=== PATIENT | male | born 1930 | race Caucasian/White ===

== ENCOUNTER 2016-11-27 11:42 | Observation (INO) | payer BC ==
[~2016-11-27] VITALS: Ht 175.3 cm; Wt 78.2 kg
[2016-11-27] MEDS ORDERED: LIDOCAINE/EPINEPH/TETRACAINE 1 EA SYR EXT STA (12:21)
--- NOTE | 2016-11-27 12:39 | EMERGENCY ROOM VISIT NOTE ---
History First contact with patient: 12:01 Chief Complaint: FALL Stated Complaint: HEAD WOUND History of Present Illness The patient is a 86 year old male who presents to the Emergency Department by private vehicle for evaluation after sustaining a fall this morning. He reports that he was ambulated through his house when he tripped over the legs of an elliptical machine. He denies any prefall headaches, dizziness, light headedness, chest pain, or palpitations. He reports striking his head on a metal table on the way down. He did not lose consciousness. He was able to gather himself from the ground. His put corn starch on the wound to help stop the bleeding as he does take Coumadin secondary to atrial fibrillation. He was seen at a walk-in clinic and directed to the emergency Department for further evaluation and management. The patient complains of mild discomfort to the site of laceration. In addition, the patient complains of pain with range of motion of the cervical spine. The patient denies any numbness or weakness into the distal extremities. He denies any total headache, blurred vision, double vision, numbness/weakness takes remedies, nausea, or vomiting. He denies any other pain throughout. He rates his current discomfort as 0/10. He is uncertain of his last INR. Patient is uncertain of his tetanus status. Review of Systems A complete 10-point Review of Systems was discussed with the patient, with pertinent positives and negatives listed in the History of Present Illness. All remaining Review of Systems questions can be considered negative unless otherwise specified. Social History Smoking Status: Never Smoker Smokeless Tobacco Use: No Drug Use: none Marital Status: Housing Status: lives with significant other Current/Historical Medications Scheduled Aspirin (Aspirin Chewable), 81 MG PO HS Atorvastatin (Lipitor), 40 MG PO HS B-Complex Vitamins (Vitamin B Complex), 1 TAB PO QAM Carvedilol (Coreg), 6.25 MG PO BID Fish Oil (Rockwood-3), 1 CAP PO DAILY Insulin Isophan/Regular (Novolin 70/30), 10 UNIT SC BID Lisinopril (Lisinopril), 2.5 MG PO QAM Multiple Vitamins W/ Minerals (Centrum Silver Adult 50+), 1 TAB PO QAM Warfarin Sodium (Coumadin), 5 MG PO QPM Allergies Coded Allergies: No Known Allergies (Unverified , 11/27/16) Physical Exam Vital Signs Date Time Temp Pulse Resp B/P Pulse Ox O2 Delivery O2 Flow Rate FiO2 11/27/16 14:35 60 148/71 99 Room Air 11/27/16 14:30 99 Room Air 11/27/16 13:09 68 18 118/62 93 Room Air 11/27/16 11:53 36.4 74 20 146/73 98 Room Air Pain Rating (0-10): 0 Physical Exam VITAL SIGNS - Vital signs and nursing notes were reviewed. GENERAL - 86-year-old male appearing his stated age. Communicates well with provider and answers questions appropriately. SKIN - 3.0 cm appreciated to the forehead. Edges gape apart with traction. No deep structures appreciated. No active bleeding noted. HEAD - Normocephalic. No Craig's Sign or Raccoon's Eyes. No depressed skull fractures palpable. EYES - PERRL with EOMI bilaterally. Without subconjunctival hemorrhage. Palpebral conjunctiva pink and moist with no injection. EARS - No deformities of external structures noted on gross examination bilaterally. No hemotympanum present. No tympanic perforation noted. Handle of malleus, umbo, cone of light, pars tensa/flaccid all easily visualized. NOSE - Midline and without cyanosis. No epistaxis or clear watery discharge noted. Septum midline without deviation. No septal hematoma noted. No overlying ecchymosis noted. MOUTH/OROPHARYNX - Without perioral cyanosis. Tongue midline with equal elevation of palate bilaterally. No blood noted in the oropharynx. No tonsillar hypertrophy, erythema, or exudates noted. No dental fractures noted. NECK - FROM assessed. No nuchal rigidity. No tenderness to palpation over the cervical spinous processes. Mild cervical paraspinal muscle tenderness noted. LUNGS - Chest wall symmetric without accessory muscle use, intercostals retractions, or central cyanosis. Normal vesicular breath sounds CTA B/L. No wheezes, rales, or rhonchi appreciated. CARDIAC - RRR with S1/S2. No murmur, rubs, or gallops appreciated. EXTREMITIES - No gross deformities noted of the extremities. +3/5 radial and dorsalis pedis pulses palpated throughout. FROM with no tremors, fasciculations , or clonus noted on PROM throughout. +5/5 strength noted in UE/LE bilaterally. NEUROLOGIC - Cranial nerves II through XII grossly intact. Sensory intact to light touch throughout. Negative Pronator Drift. PSYCH - A&Ox3 and cooperates fully with examiner. Pt is very pleasant and interacts well with examiner. Medical Decision & Procedures ER Provider Diagnostic Interpretation: Radiological imaging and reports were reviewed by myself. Radiologist's Interpretation as follows: CERVICAL SPINE CT CT DOSE: HISTORY: Trauma. Pain. neck pain s/p fall forward TECHNIQUE: Multiaxial CT images of the cervical spine were performed and reformatted in the sagittal and coronal plane without the use of contrast. COMPARISON: None. FINDINGS: No fractures. No subluxation. Prevertebral soft tissues and the C1-C2 interval are intact. No pneumothorax. Considerable degenerative changes throughout. IMPRESSION: Degenerative change. No acute bony abnormality CT SCAN OF THE BRAIN WITHOUT IV CONTRAST CLINICAL HISTORY: Head injury. COMPARISON STUDY: No priors. TECHNIQUE: Unenhanced axial CT scan of the brain is performed from the vertex to the skull base. CT DOSE: 1142.25 mGy.cm FINDINGS: Brain parenchyma: There are age-related involutional changes noting mild subcortical and periventricular microangiopathic change. There is no hemorrhage, mass effect, or evidence of acute territorial ischemia by CT criteria. Vanessa-white matter is preserved. No extra-axial fluid collection is seen. Ventricles, sulci, cisterns: Prominent secondary to involutional change. Intracranial vasculature: There is atherosclerotic calcification of the cavernous carotid and vertebral arteries. Calvarium: The skeletal structures are osteopenic. There is a nondepressed calvarial fracture through the frontal bone the midline. This is best seen on axial image #20. Soft tissues: There is a small frontal scalp contusion/laceration. Sinuses and mastoids: The visualized paranasal sinuses are clear. The mastoid air cells are well pneumatized. Orbits: The bony orbits are grossly intact. There are bilateral ocular lens implants. IMPRESSION: 1. There is no hemorrhage, mass effect, or evidence of acute territorial ischemia by CT criteria. 2. There is a frontal scalp injury with a nondepressed fracture of the midline frontal bone. Laboratory Results 11/27/16 12:25 Red Blood Count 4.37, Mean Corpuscular Volume 93.4, Mean Corpuscular Hemoglobin 31.6, Mean Corpuscular Hemoglobin Concent 33.8, Mean Platelet Volume 10.7, Neutrophils (%) (Auto) 57.2, Lymphocytes (%) (Auto) 24.7, Monocytes (%) (Auto) 13.7, Eosinophils (%) (Auto) 3.9, Basophils (%) (Auto) 0.3, Neutrophils # (Auto ) 3.49, Lymphocytes # (Auto) 1.51, Monocytes # (Auto) 0.84, Eosinophils # (Auto ) 0.24, Basophils # (Auto) 0.02 11/27/16 12:25 Test 11/27/16 12:25 White Blood Count 6.11 K/uL (4.8-10.8) Red Blood Count 4.37 M/uL (4.7-6.1) Hemoglobin 13.8 g/dL (14.0-18.0) Hematocrit 40.8 % (42-52) Mean Corpuscular Volume 93.4 fL (80-100) Mean Corpuscular Hemoglobin 31.6 pg (25-34) Mean Corpuscular Hemoglobin Concent 33.8 g/dl (32-36) Platelet Count 185 K/uL (130-400) Mean Platelet Volume 10.7 fL (7.4-10.4) Neutrophils (%) (Auto) 57.2 % Lymphocytes (%) (Auto) 24.7 % Monocytes (%) (Auto) 13.7 % Eosinophils (%) (Auto) 3.9 % Basophils (%) (Auto) 0.3 % Neutrophils # (Auto) 3.49 K/uL (1.4-6.5) Lymphocytes # (Auto) 1.51 K/uL (1.2-3.4) Monocytes # (Auto) 0.84 K/uL (0.11-0.59) Eosinophils # (Auto) 0.24 K/uL (0-0.5) Basophils # (Auto) 0.02 K/uL (0-0.2) RDW Standard Deviation 48.4 fL (36.4-46.3) RDW Coefficient of Variation 14.0 % (11.5-14.5) Immature Granulocyte % (Auto) 0.2 % Immature Granulocyte # (Auto) 0.01 K/uL (0.00-0.02) Prothrombin Time 23.4 SECONDS (9.0-12.0) Prothromb Time International Ratio 2.1 (0.9-1.1) Activated Partial Thromboplast Time 32.2 SECONDS (21.0-31.0) Partial Thromboplastin Ratio 1.2 Anion Gap 7.0 mmol/L (3-11) Est Creatinine Clear Calc Drug Dose 43.7 ml/min Estimated GFR () 85.3 Estimated GFR (Non- 73.6 BUN/Creatinine Ratio 27.6 (10-20) Calcium Level 9.0 mg/dl (8.5-10.1) Medications Administered Medications (Trade) Dose Ordered Sig/Norah Route Start Time Stop Time Status Last Admin Dose Admin Tetracaine/ Epinephrine/ Lidocaine (L.e.t. Gel 4%/ 1:100/0.5%) 1 ea NOW STAT EXT 11/27/16 12:21 11/27/16 12:23 DC 11/27/16 12:31 1 EA Procedure Costs and benefits of performing primary wound closure versus no repair were discussed with the patient who verbalizes understanding. Verbal consent was obtained prior to performing the procedure. LET gel was applied to the area and allowed to set for greater than 45 minutes. The wound was cleansed and prepped in the typical sterile fashion utilizing normal saline and Betadine. The wound was sterilely draped. Once proper anesthetization was established, the wound was further examined and demonstrated a full-thickness laceration measuring a total of 3 cm. The wound was copiously irrigated with normal saline and Betadine. The wound was closed using 2 simple interrupted 6-0 Vicryl sutures and 13 simple, 6-0 nylon sutures with the wound edges being well approximated. Patient tolerated the procedure well. No complications were met. The wound was cleansed and dressed with a Bacitracin dressing. ED Course Patient was seen and evaluated by myself. Labs were drawn, saline lock in place. Patient declines anything for pain at this time. CT the head and cervical spine were obtained after the patient was placed in a collar. Laboratory results demonstrate no acute leukocytosis, significant anemia, or bandemia. The patient has no significant electrolyte abnormalities. His INR is therapeutic at 2.1. CT the several spine is unremarkable. CT of the head concerning for frontal bone fracture which is nondepressed. I did discuss this with my attending physician. I was able to speak with Dr. Jay Hu at [facility]. The neurosurgeon did not feel that any intervention was necessary at this point. He agrees with 24 hour observation for mental status checks and any decline in symptoms otherwise. He will follow- up with the patient in clinic from today's visit. He does request CT imaging studies and a hard copy form. He does not feel that antibiotic coverage is necessary at this point. Laboratory results and imaging studies were reviewed with the patient and family who acknowledges understanding. Patient agrees to 24 hour observation. Case was reviewed with [facility] hospitalist who agrees to admit the patient. Patient admitted in stable condition. SUTURE CARE: You have received 13 sutures on your forehead. These sutures are NOT dissolvable and WILL need to be removed by a health care provider in 7 days. You can return to the Emergency Department or contact your Primary Care Provider to have the sutures removed. Proper wound care is essential for adequate wound healing and infection prevention. You can shower and clean the wound with soap and water. Do not scour over the wound, pat dry with a towel. Do not submerse the wound (i.e. bathe or dish wash) until the sutures have been removed. You can use an antibiotic ointment with a dressing over the wound for the next 3-4 days. After this time you may leave the wound dry and open to the air. If crust develops over the wound you can use a Q-tip to apply a 1:1 peroxide:water solution to clean the wound. Look for signs of infection of the wound including: increased pain, swelling, foul discharge, streaking, or increased temperature. If any of these are noticed you should return to the Emergency Department for further assessment and treatment. As with any laceration you may have received nerve damage to the surrounding tissues. This damage may or may not be permanent. You should keep the area covered with sunscreen for the first 6 months to 1 year when at risk for exposure to help minimize scarring. You can also use scar reducing creams or Vitamin E oil to help minimize scarring. For pain control, you can use the following tuep-wet-ihyklrn medicines (if >12 yo): - Regular strength (325mg/tab) Tylenol (acetaminophen) 2 tabs every 4-6 hours as needed. Do not exceed 12 tablets in a 24 hour period. Avoid taking more than 4 grams (4000 mg) of Tylenol per day. This includes any other sources of acetaminophen you may take on a regular basis. - Regular strength (200 mg/tab) Advil (ibuprofen) 1-2 tabs every 4-6 hours as needed. Do not exceed a dose of 3200 mg per day. Return to the emergency department if your symptoms worsen despite treatment course outlined above. Medical Decision Given the patient's presentation and exam findings, I did elect to perform the above-mentioned workup. The patient sustained a mechanical fall today. There is no loss of consciousness. He has complained of neck pain. Because of this, a CT of the cervical spine as well as head were obtained. CT the head was concerning for frontal bone fracture which was nondepressed. Regardless, the patient is on Coumadin and lives at home with his ailing . After conversation with neurosurgeon at [place], it was felt best that the patient be observed for 24 hours and then follow closely in the outpatient setting. The patient was in agreement with disposition plan. The patient was admitted in stable condition. In the evaluation and treatment of this patient, the following differential diagnoses were considered: Concussion, Contrecoup Injury, Brain Tumor, Depression, Encephalitis, Hypothyroidism, Meningitis, CVA, TIA, Migraine, Cluster Headache, Intracranial Abnormality, Intracranial Hemorrhage, Subdural Hematoma, Subarachnoid Hemorrhage, Hydrocephalus. Impression Primary Impression: Frontal skull fracture Additional Impressions: Fall Facial laceration Departure Information Dispostion Admitted as an inpatient Condition GOOD Referrals RV. Mills MD (PCP) Patient Instructions [facility] Problem Qualifiers Primary Impression: Frontal skull fracture Encounter type: initial encounter Fracture type: open Qualified Codes: S02.0XXB - Fracture of vault of skull, initial encounter for open fracture Additional Impressions: Fall Encounter type: initial encounter Qualified Codes: W19.XXXA - Unspecified fall, initial encounter Facial laceration Encounter type: initial encounter Qualified Codes: S01.81XA - Laceration without foreign body of other part of head, initial encounter
[2016-11-27 12:40] LABS: BASO % 0.3 %; BASO ABS # 0.02 K/uL (0-0.2); COMPLETE YES; EOS % 3.9 %; HEMATOCRIT 40.8 % (42-52); IG% 0.2 %; LYMPH % 24.7 %; LYMPH ABS # 1.51 K/uL (1.2-3.4); MEAN CELL VOLUME 93.4 fL (80-100); MEAN CORPUSCULAR HEMOGLOBIN 31.6 pg (25-34); MEAN CORPUSCULAR HGB CONC 33.8 g/dl (32-36); MEAN PLATELET VOLUME 10.7 fL (7.4-10.4); MONO % 13.7 %; NEUT % 57.2 %; PLATELET COUNT 185 K/uL (130-400); RED BLOOD COUNT 4.37 M/uL (4.7-6.1); WHITE BLOOD COUNT 6.11 K/uL (4.8-10.8)
[2016-11-27] MEDS ORDERED: ATOR-24 PO (12:46)
[2016-11-27] MEDS ORDERED: MULT-845 PO (12:46)
[2016-11-27] MEDS ORDERED: B-COTAB18 PO (12:46)
[2016-11-27] MEDS ORDERED: INSU70IN2 SC (12:46)
[2016-11-27] MEDS ORDERED: LSN25 PO (12:46)
[2016-11-27] MEDS ORDERED: ASPCH81X PO (12:46)
[2016-11-27] MEDS ORDERED: WARF5TAB90 PO (12:46)
[2016-11-27] MEDS ORDERED: OMEG10007 PO (12:46)
[2016-11-27] MEDS ORDERED: CARV6.252 PO (12:46)
[2016-11-27 12:49] LABS: INR 2.1 (0.9-1.1); PARTIAL THROMBOPLASTIN RATIO 1.2; PROTHROMBIN TIME (PATIENT) 23.4 SECONDS (9.0-12.0)
--- NOTE | 2016-11-27 12:55 | DIAGNOSTIC IMAGING REPORT ---
CERVICAL SPINE CT CT DOSE: HISTORY: Trauma. Pain. neck pain s/p fall forward TECHNIQUE: Multiaxial CT images of the cervical spine were performed and reformatted in the sagittal and coronal plane without the use of contrast. COMPARISON: None. FINDINGS: No fractures. No subluxation. Prevertebral soft tissues and the C1-C2 interval are intact. No pneumothorax. Considerable degenerative changes throughout. IMPRESSION: Degenerative change. No acute bony abnormality Electronically signed by: Ander Willis M.D. 11/27/2016 12:53 PM Dictated Date/Time: 11/27/2016 12:52 PM
[2016-11-27 12:57] LABS: BUN/CREATININE RATIO 27.6 (10-20); CREATININE 0.94 mg/dl (0.60-1.40); POTASSIUM 4.2 mmol/L (3.5-5.1)
--- NOTE | 2016-11-27 12:57 | DIAGNOSTIC IMAGING REPORT ---
CT SCAN OF THE BRAIN WITHOUT IV CONTRAST CLINICAL HISTORY: Head injury. COMPARISON STUDY: No priors. TECHNIQUE: Unenhanced axial CT scan of the brain is performed from the vertex to the skull base. CT DOSE: 1142.25 mGy.cm FINDINGS: Brain parenchyma: There are age-related involutional changes noting mild subcortical and periventricular microangiopathic change. There is no hemorrhage, mass effect, or evidence of acute territorial ischemia by CT criteria. Vanessa-white matter is preserved. No extra-axial fluid collection is seen. Ventricles, sulci, cisterns: Prominent secondary to involutional change. Intracranial vasculature: There is atherosclerotic calcification of the cavernous carotid and vertebral arteries. Calvarium: The skeletal structures are osteopenic. There is a nondepressed calvarial fracture through the frontal bone the midline. This is best seen on axial image #20. Soft tissues: There is a small frontal scalp contusion/laceration. Sinuses and mastoids: The visualized paranasal sinuses are clear. The mastoid air cells are well pneumatized. Orbits: The bony orbits are grossly intact. There are bilateral ocular lens implants. IMPRESSION: 1. There is no hemorrhage, mass effect, or evidence of acute territorial ischemia by CT criteria. 2. There is a frontal scalp injury with a nondepressed fracture of the midline frontal bone. Electronically signed by: Godfrey Hennessy M.D. 11/27/2016 12:55 PM Dictated Date/Time: 11/27/2016 12:51 PM
[2016-11-27 14:30] VITALS: O2SAT 99; Ht 175.3 cm; Wt 78.2 kg
[2016-11-27] MEDS ORDERED: ACETAMINOPHEN 325 MG TAB PO PRN (14:30)
[2016-11-27] MEDS ORDERED: ONDANSETRON INJ 2 MG/ML 2 ML VIAL IV PRN (14:30)
[2016-11-27] MEDS ORDERED: NITROGLYCERIN 0.4 MG SL PER TAB CHARGE SL PRN (14:30)
[2016-11-27] MEDS ORDERED: MAGNESIUM HYDROXIDE SUSP 30 ML UDC PO PRN (14:30)
[2016-11-27] MEDS ORDERED: MoRPHine SULFATE 2 MG/ML CARP IV PRN (14:30)
[2016-11-27] MEDS ORDERED: POLYETHYLENE (MIRALAX) 17 GM PACK PO PRN (14:30)
[2016-11-27] MEDS ORDERED: ALUMINUM/MAGNESIUM/SIMETH (MAALOX MAX) 30 ML UDC PO PRN (14:30)
--- NOTE | 2016-11-27 14:58 | History and Physical ---
History & Physical Date & Time of Service: Nov 27, 2016 at 14:50 Chief Complaint: Head Wound Primary Care Physician: RV. 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 Patient was in his living room [facility], tripped over its legs, fell and hit his forehead on edge of metal sewing machine table. He denies any preceding presyncope, syncope, loss of balance , however normally use cane, using brace on left foot for tendonitis, at the time , had no cane or brace with him. Following significant bleeding, applied pressure to forehead with cloth, and applied corn starch to wound. after fall: + pain at laceration, denies confusion, dizziness, headache,no blurry vision, ringing in ears, no n/v light sensitivity, fatigue. He has had previous fall 1 mo ago most recently for similar circumstances. Currently he is feeling well, 2/10 pain and s/p suturing of forehead laceration. In ED Initial CT shows no evidence of hemorrhage Past Medical/Surgical History Aortic Stenosis w/CHF pacemaker DM II HLD RBBB Paroxysmal Atrial fibrillation Third Degree AV Block Anemic(chronic) Social History Smoking Status: Never Smoker Smokeless Tobacco Use: No Drug Use: none Marital Status: Housing status: lives with family Occupational Status: retired Allergies Coded Allergies: No Known Allergies (Unverified , 11/27/16) Home Medications Scheduled Aspirin (Aspirin Chewable), 81 MG PO HS Atorvastatin (Lipitor), 40 MG PO HS B-Complex Vitamins (Vitamin B Complex), 1 TAB PO QAM Carvedilol (Coreg), 6.25 MG PO BID Fish Oil ([place]-3), 1 CAP PO DAILY Insulin Isophan/Regular (Novolin 70/30), 10 UNIT SC BID Lisinopril (Lisinopril), 2.5 MG PO QAM Multiple Vitamins W/ Minerals (Centrum Silver Adult 50+), 1 TAB PO QAM Warfarin Sodium (Coumadin), 5 MG PO QPM Review of Systems Constitutional: No chills, No fatigue, No fever, No weakness Eyes: No diplopia, No eye pain, No worsening of vision Respiratory: No cough, No shortness of breath, No wheezing Cardiovascular: No chest pain, No edema, No palpitations Abdomen: No nausea, No pain, No vomiting Genitourinary - Male: No dysuria, No hematuria, No urinary frequency Neurologic: + problem reported, No balance problems, No memory loss, No numbness/tingling, No paralysis, No vertigo, No weakness Hematologic / Lymphatic: + problem reported (on Coumadin) Integumentary: + bleeding (from forehead laceration) Physical Exam Vital Signs Date Time Temp Pulse Resp B/P Pulse Ox O2 Delivery O2 Flow Rate FiO2 11/27/16 13:09 68 18 118/62 93 Room Air 11/27/16 11:53 36.4 74 20 146/73 98 Room Air Head: + pertinent finding (3 cm forehead laceration, s/p suturing) Eyes: normal inspection, PERRL, EOMI Neck: supple, no JVD, no carotid bruits Respiratory/Chest: chest non-tender, lungs clear, normal breath sounds, no respiratory distress, no accessory muscle use Cardiovascular: regular rate, rhythm, no edema, no gallop, no JVD, normal peripheral pulses Abdomen/GI: normal bowel sounds, non tender, soft, no organomegaly Extremities/Musculoskelatal: normal inspection, no calf tenderness, no pedal edema Neurologic/Psych: private client advisor II-XII nml as tested, no motor/sensory deficits, alert, normal mood/affect, normal reflexes, oriented x 3 Diagnostics Laboratory Results Results Past 24 Hours Test 11/27/16 12:25 Range/Units White Blood Count 6.11 4.8-10.8 K/uL Red Blood Count 4.37 4.7-6.1 M/uL Hemoglobin 13.8 14.0-18.0 g/dL Hematocrit 40.8 42-52 % Mean Corpuscular Volume 93.4 80-100 fL Mean Corpuscular Hemoglobin 31.6 25-34 pg Mean Corpuscular Hemoglobin Concent 33.8 32-36 g/dl Platelet Count 185 130-400 K/uL Mean Platelet Volume 10.7 7.4-10.4 fL Neutrophils (%) (Auto) 57.2 % Lymphocytes (%) (Auto) 24.7 % Monocytes (%) (Auto) 13.7 % Eosinophils (%) (Auto) 3.9 % Basophils (%) (Auto) 0.3 % Neutrophils # (Auto) 3.49 1.4-6.5 K/uL Lymphocytes # (Auto) 1.51 1.2-3.4 K/uL Monocytes # (Auto) 0.84 0.11-0.59 K/uL Eosinophils # (Auto) 0.24 0-0.5 K/uL Basophils # (Auto) 0.02 0-0.2 K/uL RDW Standard Deviation 48.4 36.4-46.3 fL RDW Coefficient of Variation 14.0 11.5-14.5 % Immature Granulocyte % (Auto) 0.2 % Immature Granulocyte # (Auto) 0.01 0.00-0.02 K/uL Prothrombin Time 23.4 9.0-12.0 SECONDS Prothromb Time International Ratio 2.1 0.9-1.1 Activated Partial Thromboplast Time 32.2 21.0-31.0 SECONDS Partial Thromboplastin Ratio 1.2 Sodium Level 142 136-145 mmol/L Potassium Level 4.2 3.5-5.1 mmol/L Chloride Level 107 98-107 mmol/L Carbon Dioxide Level 28 21-32 mmol/L Anion Gap 7.0 3-11 mmol/L Blood Urea Nitrogen 26 7-18 mg/dl Creatinine 0.94 0.60-1.40 mg/dl Est Creatinine Clear Calc Drug Dose 43.7 ml/min Estimated GFR () 85.3 Estimated GFR (Non- 73.6 BUN/Creatinine Ratio 27.6 10-20 Random Glucose 111 70-99 mg/dl Calcium Level 9.0 8.5-10.1 mg/dl Diagnostic Radiology CERVICAL SPINE CT CT DOSE: HISTORY: Trauma. Pain. neck pain s/p fall forward TECHNIQUE: Multiaxial CT images of the cervical spine were performed and reformatted in the sagittal and coronal plane without the use of contrast. COMPARISON: None. FINDINGS: No fractures. No subluxation. Prevertebral soft tissues and the C1-C2 interval are intact. No pneumothorax. Considerable degenerative changes throughout. IMPRESSION: Degenerative change. No acute bony abnormality CT SCAN OF THE BRAIN WITHOUT IV CONTRAST CLINICAL HISTORY: Head injury. COMPARISON STUDY: No priors. TECHNIQUE: Unenhanced axial CT scan of the brain is performed from the vertex to the skull base. CT DOSE: 1142.25 mGy.cm FINDINGS: Brain parenchyma: There are age-related involutional changes noting mild subcortical and periventricular microangiopathic change. There is no hemorrhage, mass effect, or evidence of acute territorial ischemia by CT criteria. Vanessa-white matter is preserved. No extra-axial fluid collection is seen. Ventricles, sulci, cisterns: Prominent secondary to involutional change. Intracranial vasculature: There is atherosclerotic calcification of the cavernous carotid and vertebral arteries. Calvarium: The skeletal structures are osteopenic. There is a nondepressed calvarial fracture through the frontal bone the midline. This is best seen on axial image #20. Soft tissues: There is a small frontal scalp contusion/laceration. Sinuses and mastoids: The visualized paranasal sinuses are clear. The mastoid air cells are well pneumatized. Orbits: The bony orbits are grossly intact. There are bilateral ocular lens implants. IMPRESSION: 1. There is no hemorrhage, mass effect, or evidence of acute territorial ischemia by CT criteria. 2. There is a frontal scalp injury with a nondepressed fracture of the midline frontal bone. 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 There is no hemorrhage, mass effect, or evidence of acute territorial ischemia by CT criteria. 2. There is a frontal scalp injury with a nondepressed fracture of the midline frontal bone. -Neuro checks q4H -Hold Coumadin -repeat CT in AM Aortic Stenosis: - s/p TAVR -stable, asx DM II -Continue home insulin regimen HLD -statin held RBBB, Third Degree AV Block -s/p dual chamber pacemaker -stable - Monitor on Telemetry Paroxysmal Atrial fibrillation - rate controlled - Coumadin held -INR 2.1 - Consider rversal if evidence of bleed Anemic(chronic) H/H Stable 13.8/40.8 baseline range 9-14 F/u CBC DVT Prophylaxis Coumadin held SCD's Resident Physician Supervision Note: Pt examined independently. I discussed the case with the resident and agree with the findings and plan as documented in the note. Any exceptions or clarifications are listed here 86 y/o M w/multiple medical problems on Coumadin for AF Suffered a mechanical fall and resultant head lac and frontal skull fracture No LOC reported and no ICH on CT Case was discussed with Neurosurg at [facility] - stated OK to obs overnight and monitor OE AAO x 3 S1,2 + systolic murmur NT, ND No C/C/E No defecitds on full neuro exam P: Neurochecks Q4 Hold Coumadin and ASA Repeat CT AM Documented By: Justino Patrick Level of Care Telemetry Resuscitation Status FULL RESUSCITATION VTE Prophylaxis VTE Risk Assessment Done? Y/N: Yes Risk Level: Low Social Service Consult None Apply Resident Tracking Resident Involvement: Resident Care Provided Care Provided: Adult Hospital Medicine
[2016-11-27] MEDS ORDERED: IV FLUIDS COMPLETED PRN (15:15)
[2016-11-27 15:46] VITALS: BP 129/73; PULSE 60; TEMP 36.5; O2SAT 96
[2016-11-27 16:00] VITALS: O2SAT 96
[2016-11-27] MEDS ORDERED: DEXTROSE 50% 50 ML SYR IV PRN (16:00)
[2016-11-27] MEDS ORDERED: GLUCAGON FOR INJ 1 MG VIAL SQ PRN (16:00)
[2016-11-27] MEDS ORDERED: GLUCOSE 40% GEL 15 GM TUBE PO PRN (16:00)
[2016-11-27] MEDS ORDERED: GLUCOSE 10 TABS/TUBE PO PRN (16:00)
[2016-11-27] MEDS: NITROGLYCERIN OINT 2% 1GM PACKET EXT SCH ×2 (16:59→22:02)
[2016-11-27] MEDS: INSULIN HUMAN 70% NPH/30% REGULAR SC SCH (17:01)
[2016-11-27 19:35] VITALS: BP 100/56; PULSE 60; TEMP 36.7; O2SAT 95
[2016-11-27] MEDS: CARVEDILOL 6.25 MG TAB PO SCH (20:55)
[2016-11-27 22:00] VITALS: O2SAT 95
[2016-11-27 23:35] VITALS: BP 115/63; PULSE 60; TEMP 36.6; O2SAT 95
[2016-11-28 03:19] VITALS: BP 92/49; PULSE 60; TEMP 36.6; O2SAT 94
[2016-11-28] MEDS: NITROGLYCERIN OINT 2% 1GM PACKET EXT SCH ×2 (04:00→10:00)
[2016-11-28 07:55] VITALS: BP 111/52; PULSE 61; TEMP 36.4; O2SAT 95
[2016-11-28 08:00] VITALS: O2SAT 95
[2016-11-28] MEDS: CARVEDILOL 6.25 MG TAB PO SCH (08:22)
[2016-11-28] MEDS: INSULIN HUMAN 70% NPH/30% REGULAR SC SCH (08:25)
--- NOTE | 2016-11-28 08:46 | Family Medicine Progress Note ---
Progress Note Date of Service Nov 28, 2016. Subjective Pt evaluation today including: conversation w/ patient, physical exam, chart review, lab review, review of studies, review of inpatient medication list Pain: 2/10 pain at laceration Medications Current Inpatient Medications Medications (Trade) Dose Ordered Sig/Norah Route Start Time Stop Time Status Last Admin Dose Admin Acetaminophen (Tylenol Tab) 650 mg Q4H PRN PO 11/27/16 14:30 12/27/16 14:29 11/28/16 08:32 650 MG Al Hydrox/Mg Hydrox/Simethicone (Maalox Max Susp) 15 ml Q4H PRN PO 11/27/16 14:30 12/27/16 14:29 Magnesium Hydroxide (Milk Of Magnesia Susp) 30 ml Q12H PRN PO 11/27/16 14:30 12/27/16 14:29 Ondansetron HCl (Zofran Inj) 4 mg Q6H PRN IV 11/27/16 14:30 12/27/16 14:29 Nitroglycerin (Nitrostat Tab) 0.4 mg UD PRN SL 11/27/16 14:30 12/27/16 14:29 Nitroglycerin (Nitroglycerin 2% Oint) 1 inch Q6H EXT 11/27/16 16:00 12/27/16 15:59 11/27/16 22:02 1 INCH Morphine Sulfate (MoRPHine SULFATE INJ) 2 mg Q30M PRN IV 11/27/16 14:30 12/11/16 14:29 Polyethylene (Miralax Powder Packet) 17 gm DAILY PRN PO 11/27/16 14:30 12/27/16 14:29 Miscellaneous (Iv Fluids Completed) 1 ea PRN PRN N/A 11/27/16 15:15 11/27/17 15:14 Carvedilol (Coreg Tab) 6.25 mg BID PO 11/27/16 21:00 12/27/16 20:59 11/28/16 08:22 6.25 MG Insulin Human Isoph/Insulin Regular (novoLIN 70/30 REGULAR) 10 units BIDM SC 11/27/16 16:45 12/27/16 16:44 11/28/16 08:25 10 UNITS Lisinopril (Zestril Tab) 2.5 mg QAM PO 11/28/16 09:00 12/28/16 08:59 11/28/16 08:23 2.5 MG Glucose (Glucose 40% Gel) 15-30 GRAMS 15 GRAMS... UD PRN PO 11/27/16 16:00 12/27/16 15:59 Glucose (Glucose Chew Tab) 4-8 Tablets 4 Tabl... UD PRN PO 11/27/16 16:00 12/27/16 15:59 Dextrose (Dextrose 50% 50ML Syringe) 25-50ML OF 50% DW IV FOR... UD PRN IV 11/27/16 16:00 12/27/16 15:59 Glucagon (Glucagon Inj) 1 mg UD PRN SQ 11/27/16 16:00 12/27/16 15:59 Objective Vital Signs Date Time Temp Pulse Resp B/P Pulse Ox O2 Delivery O2 Flow Rate FiO2 11/28/16 07:55 36.4 61 18 111/52 95 Room Air 11/28/16 04:00 Room Air 11/28/16 03:19 36.6 60 17 92/49 94 Room Air 11/28/16 00:00 Room Air 11/27/16 23:35 36.6 60 16 115/63 95 Room Air 11/27/16 22:00 95 Room Air 11/27/16 19:35 36.7 60 24 100/56 95 Room Air 11/27/16 16:00 96 Room Air 11/27/16 15:46 36.5 60 22 129/73 96 11/27/16 14:35 60 148/71 99 Room Air 11/27/16 14:30 99 Room Air 11/27/16 13:09 68 18 118/62 93 Room Air 11/27/16 11:53 36.4 74 20 146/73 98 Room Air Physical Exam General Appearance: WD/WN, no apparent distress, + pertinent finding (3 cm facial lacteration, sutured, no drainage) Eyes: normal inspection, PERRL, EOMI Neck: supple, no adenopathy, no carotid bruits, trachea midline Respiratory/Chest: chest non-tender, normal breath sounds, no respiratory distress, no accessory muscle use Cardiovascular: regular rate, rhythm, no edema, no murmur Abdomen: normal bowel sounds, non tender, soft Extremities: normal range of motion, non-tender, normal inspection Neurologic/Psychiatric: cut off man II-XII nml as tested, no motor/sensory deficits, alert, normal mood/affect, oriented x 3 Skin: normal color, warm/dry, no rash Resident Tracking Resident Involvement: Resident Care Provided Care Provided: Adult [facility] Medicine
[2016-11-28] MEDS ORDERED: LISINOPRIL 2.5 MG TAB PO SCH (09:00)
--- NOTE | 2016-11-28 09:35 | DIAGNOSTIC IMAGING REPORT ---
CT HEAD WITHOUT CONTRAST (CT) CLINICAL HISTORY: Head trauma. Nondisplaced skull fracture. COMPARISON STUDY: 11/27/2016 TECHNIQUE: Axial CT of the brain is performed from the vertex to the skull base. IV contrast was not administered for this examination. CT DOSE: 614.27 mGy.cm FINDINGS: No intra or extra-axial mass lesions are visualized. There is no CT evidence of acute cortical infarction. There is no evidence of midline shift. There is no acute hemorrhage. There are patchy white matter hypodensities likely on a small vessel basis. There is no evidence of pathologic ventricular dilatation. There is no evidence of acute sinusitis. There is minor frontal scalp edema. A linear lucency is visualized within the frontal bone in the midline. This was previously described as a nondisplaced fracture. While I cannot exclude a fracture, I favor this representing a sutural remnant. IMPRESSION: No acute intracranial findings Electronically signed by: Brannon Gonzalez M.D. 11/28/2016 9:34 AM Dictated Date/Time: 11/28/2016 9:27 AM
[2016-11-28 10:18] LABS: HEMATOCRIT 39.5 % (42-52); MEAN CELL VOLUME 94.3 fL (80-100); MEAN CORPUSCULAR HEMOGLOBIN 32.7 pg (25-34); MEAN CORPUSCULAR HGB CONC 34.7 g/dl (32-36); PLATELET COUNT 173 K/uL (130-400); RED BLOOD COUNT 4.19 M/uL (4.7-6.1)
[2016-11-28 10:43] LABS: BUN/CREATININE RATIO 27.6 (10-20); CALCIUM 8.5 mg/dl (8.5-10.1); CREATININE 0.95 mg/dl (0.60-1.40)
--- NOTE | 2016-11-28 11:16 | Discharge Instructions ---
Discharge Instructions Date of Service Nov 28, 2016. Admission Reason for Admission: Fall, Frontal Skull Fracture Discharge Discharge Diagnosis / Problem: Head Injury, Forhead laceration Discharge Goals Goal(s): Decrease discomfort, Improve function, Increase independence, Improve disease control, Improve nutritional status, Learn about illness, Diagnostic testing, Therapeutic intervention, Prevent Disease Progression, Specific goals Activity Recommendations Activity Limitations: resume your previous activity . Instructions / Follow-Up Instructions / Follow-Up You came into the hospital with a head injury with a laceration to the forehead. Two successive CT scans of the head showed no bleeding. -Please monitor your head wound for redness/swelling/oozing, Call your primary doctor if you notice these changes -Please follow up with your Primary Care provider in 1 week for removal of sutures -If you notice blurry vision, increasing Headache, dizziness, weakness please come back into ED for evaluation or inform your doctor Current Hospital Diet Patient's current hospital diet: AHA Diet (Heart Healthy) Discharge Diet Recommended Diet: Regular Diet Pending Studies Studies pending at discharge: no Medical Emergencies . Who to Call and When: Medical Emergencies: If at any time you feel your situation is an emergency, please call 911 immediately. . Non-Emergent Contact Non-Emergency issues call your: Primary Care Provider Call Non-Emergent contact if: you have a fever, your pain is not controlled, your pain is worsening, your pain is unusual for you, your pain is concerning you, wound has increased drainage, wound has increased redness, wound has increased pain, you have any medication questions . . "Provider Documentation" section prepared by Yoan Masterson. VTE Core Measure Inpt VTE Proph given/why not?: Contraindicated
[2016-11-28 11:40] VITALS: BP 96/56; PULSE 63; TEMP 36.4; O2SAT 93
[2016-11-28 11:45] VITALS: BP 96/56; PULSE 63; TEMP 36.4; O2SAT 93
--- NOTE | 2016-11-28 12:12 | Discharge Summary ---
Discharge Summary Date of Service Nov 28, 2016. (Yoan Masterson MD) Discharge Summary Admission Date: Nov 27, 2016 at 14:48 Discharge Date: Nov 28, 2016 Discharge Disposition: Home Principal Diagnosis: Head Injury, Forehead laceration Procedures: CT SCAN OF THE BRAIN WITHOUT IV CONTRAST CLINICAL HISTORY: Head injury. COMPARISON STUDY: No priors. TECHNIQUE: Unenhanced axial CT scan of the brain is performed from the vertex to the skull base. CT DOSE: 1142.25 mGy.cm FINDINGS: Brain parenchyma: There are age-related involutional changes noting mild subcortical and periventricular microangiopathic change. There is no hemorrhage, mass effect, or evidence of acute territorial ischemia by CT criteria. Vanessa-white matter is preserved. No extra-axial fluid collection is seen. Ventricles, sulci, cisterns: Prominent secondary to involutional change. Intracranial vasculature: There is atherosclerotic calcification of the cavernous carotid and vertebral arteries. Calvarium: The skeletal structures are osteopenic. There is a nondepressed calvarial fracture through the frontal bone the midline. This is best seen on axial image #20. Soft tissues: There is a small frontal scalp contusion/laceration. Sinuses and mastoids: The visualized paranasal sinuses are clear. The mastoid air cells are well pneumatized. Orbits: The bony orbits are grossly intact. There are bilateral ocular lens implants. IMPRESSION: 1. There is no hemorrhage, mass effect, or evidence of acute territorial ischemia by CT criteria. 2. There is a frontal scalp injury with a nondepressed fracture of the midline frontal bone. CERVICAL SPINE CT CT DOSE: HISTORY: Trauma. Pain. neck pain s/p fall forward TECHNIQUE: Multiaxial CT images of the cervical spine were performed and reformatted in the sagittal and coronal plane without the use of contrast. COMPARISON: None. FINDINGS: No fractures. No subluxation. Prevertebral soft tissues and the C1-C2 interval are intact. No pneumothorax. Considerable degenerative changes throughout. IMPRESSION: Degenerative change. No acute bony abnormality [~ rep ct add3]] CT HEAD WITHOUT CONTRAST (CT) CLINICAL HISTORY: Head trauma. Nondisplaced skull fracture. COMPARISON STUDY: 11/27/2016 TECHNIQUE: Axial CT of the brain is performed from the vertex to the skull base. IV contrast was not administered for this examination. CT DOSE: 614.27 mGy.cm FINDINGS: No intra or extra-axial mass lesions are visualized. There is no CT evidence of acute cortical infarction. There is no evidence of midline shift. There is no acute hemorrhage. There are patchy white matter hypodensities likely on a small vessel basis. There is no evidence of pathologic ventricular dilatation. There is no evidence of acute sinusitis. There is minor frontal scalp edema. A linear lucency is visualized within the frontal bone in the midline. This was previously described as a nondisplaced fracture. While I cannot exclude a fracture, I favor this representing a sutural remnant. IMPRESSION: No acute intracranial findings Consultations: Neurosurgery ([place]) (Yoan Masterson MD) Medication Reconciliation Continued Medications: Aspirin (Aspirin Chewable) 81 Mg Chew 81 MG PO HS Atorvastatin (Lipitor) 40 Mg Tab 40 MG PO HS, TAB B-Complex Vitamins (Vitamin B Complex) 1 Tab Tab 1 TAB PO QAM Carvedilol (Coreg) 6.25 Mg Tab 6.25 MG PO BID, TAB Fish Oil ([place]-3) 1 Ea Cap 1 CAP PO DAILY, CAP Insulin Isophan/Regular (Novolin 70/30) Susp 10 UNIT SC BID, BTL Lisinopril (Lisinopril) 2.5 Mg Tab 2.5 MG PO QAM Multiple Vitamins W/ Minerals (Centrum Silver Adult 50+) 1 Tab Tab 1 TAB PO QAM Warfarin Sodium (Coumadin) 5 Mg Tab 5 MG PO QPM, TAB Discharge Exam Physical Exam General Appearance: WD/WN, no apparent distress, + pertinent finding (3 cm facial lacteration, sutured, no drainage) Eyes: normal inspection, PERRL, EOMI Neck: supple, no adenopathy, no carotid bruits, trachea midline Respiratory/Chest: chest non-tender, normal breath sounds, no respiratory distress, no accessory muscle use Cardiovascular: regular rate, rhythm, no edema, no murmur Abdomen: normal bowel sounds, non tender, soft Extremities: normal range of motion, non-tender, normal inspection Neurologic/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, no motor/sensory deficits, alert, normal mood/affect, oriented x 3 Skin: normal color, warm/dry, no rash Review of Systems: Constitutional: No chills, No fever, No weakness Eyes: No diplopia, No worsening of vision Respiratory: No cough, No shortness of breath, No wheezing Cardiovascular: No chest pain, No edema, No palpitations Abdomen: No diarrhea, No nausea, No pain, No vomiting Musculoskeletal: No calf pain, No swelling Genitourinary - Male: No dysuria, No hematuria, No urinary frequency, No urinary urgency Neurologic: + problem reported (2-3/10 Headache, Pain at laceration site), No memory loss, No numbness/tingling, No paralysis, No vertigo, No weakness Hematologic / Lymphatic: No abnormal bleeding/bruising Integumentary: No itch, No rash (Yoan Masterson MD) Review of Systems: Constitutional: No fever Respiratory: No shortness of breath Cardiovascular: No chest pain Abdomen: No pain Neurologic: No numbness/tingling, No paralysis, No vertigo, No weakness Physical Exam: General Appearance: no apparent distress Respiratory/Chest: lungs clear, no respiratory distress Cardiovascular: regular rate, rhythm Neurologic/Psychiatric: alert, oriented x 3 Skin: warm/dry, + pertinent finding (forehead wound - healthy looking. 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 Fall caused direct forehead injury on a metal sewing table leading to laceration of forehead and subsequent bleeding and associated pain. He denied any Traumatic Brain injury symptoms following impact. Initial CT on arrival showed no evidence of hemorrhage, but indicated a non-depressed skull fracture of the mid-line frontal bone. Coumadin was held on arrival. Forehead laceration was linear land about 3 cm in length. It was subsequently sutured. Patient was admitted and held for observation after discussion with neurosurgery at [facility]. On Day 2 of hospital stay, patient had remained asx other some pain at laceration site. Repeat CT showed no intracranial hemorrhage. Patient was later discharged on his home medications with 1 week followup for suture removal. Total Time Spent: Less than 30 minutes This includes examination of the patient, discharge planning, medication reconciliation, and communication with other providers. (Yoan Masterson MD) I have reviewed the medical record and performed a history and physical examination of this patient today. I have discussed the case with Dr. Masterson. The above note reflects my findings, conclusions, and recommendations. Total Time Spent: Greater than 30 minutes (35) (Myla Gan M.D.) Discharge Instructions Please refer to the electronic Patient Visit Report (Discharge Instructions) for additional information. (Yoan Masterson MD) Additional Copies To RV. Mills MD Resident Tracking Resident Involvement: Resident Care Provided Care Provided: Adult Hospital Medicine (Yoan Masterson MD)
== END 2016-11-28 12:40 | disposition home or self-care (01) ==
LOC: ENRESERVTM → ENRESERVDT → C.EDB 11:44 → C.2T 14:48
PROVIDERS: ADMIT Internal Medicine; ATTEND Family Medicine
DX: S02.0XXA Fracture of vault of skull, initial encounter for closed fracture (principal); S01.81XA Laceration without foreign body of other part of head, initial encounter; W22.8XXA Striking against or struck by other objects, initial encounter; I48.0 Paroxysmal atrial fibrillation; I35.0 Nonrheumatic aortic (valve) stenosis; I50.9 Heart failure, unspecified; I45.10 Unspecified right bundle-branch block; D64.9 Anemia, unspecified; I44.2 Atrioventricular block, complete; E11.9 Type 2 diabetes mellitus without complications; E78.5 Hyperlipidemia, unspecified; I25.10 Atherosclerotic heart disease of native coronary artery without angina pectoris; Z79.82 Long term (current) use of aspirin; Z79.01 Long term (current) use of anticoagulants; Z79.4 Long term (current) use of insulin; Z95.1 Presence of aortocoronary bypass graft; Z95.0 Presence of cardiac pacemaker

== ENCOUNTER → 2017-02-23 | Outpatient (CLI) | payer BC ==
[~2017-02-23] MED LIST: ASPCH81X PO; ATOR-24 PO; B-COTAB18 PO; CARV6.252 PO; INSU70IN2 SC; LSN25 PO; MULT-845 PO; OMEG10007 PO; WARF5TAB90 PO
[2017-02-23 12:26] LABS: BASO % 0.2 %; BASO ABS # 0.01 K/uL (0-0.2); COMPLETE YES; EOS % 4.8 %; HEMATOCRIT 41.4 % (42-52); IG% 0.2 %; LYMPH % 29.7 %; LYMPH ABS # 1.67 K/uL (1.2-3.4); MEAN CELL VOLUME 95.4 fL (80-100); MEAN CORPUSCULAR HEMOGLOBIN 32.3 pg (25-34); MEAN CORPUSCULAR HGB CONC 33.8 g/dl (32-36); MEAN PLATELET VOLUME 10.6 fL (7.4-10.4); MONO % 14.6 %; NEUT % 50.5 %; PLATELET COUNT 201 K/uL (130-400); RED BLOOD COUNT 4.34 M/uL (4.7-6.1); WHITE BLOOD COUNT 5.63 K/uL (4.8-10.8)
[2017-02-23 13:36] LABS: ESTIMATED AVERAGE GLUCOSE 128 mg/dl; HA1C FLAG Normal (Normal)
[2017-02-23 13:38] LABS: ALT/SGPT 32 U/L (12-78); BLOOD UREA NITROGEN 21 mg/dl (7-18); BUN/CREATININE RATIO 20.8 (10-20); CARBON DIOXIDE 29 mmol/L (21-32); CHLORIDE 105 mmol/L (98-107); CHOLESTEROL 137 mg/dl (0-200); GLUCOSE 112 mg/dl (70-99); MAGNESIUM 2.2 mg/dl (1.8-2.4); POTASSIUM 4.3 mmol/L (3.5-5.1); SODIUM 142 mmol/L (136-145); TRIGLYCERIDES 106 mg/dl (0-150); VERY LOW DENSITY LIPOPROT CALC 21 mg/dl
[2017-02-23 13:44] LABS: CALCIUM 9.4 mg/dl (8.5-10.1)
[2017-02-23 13:46] LABS: ALB/GLOB RATIO 0.9 (0.9-2); ALKALINE PHOSPHATASE 74 U/L (45-117); AST/SGOT 30 U/L (15-37); CHOLESTEROL/HDL RATIO 2.9; HDL CHOLESTEROL 47 mg/dl; LDL CHOLESTEROL CALCULATED 69 mg/dl; THYROID STIMULATING HORMONE 0.987 uIu/ml (0.300-4.500)
== END | disposition home or self-care (01) ==
LOC: C.LAB1850 10:44
PROVIDERS: ATTEND Internal Medicine
DX: E11.9 Type 2 diabetes mellitus without complications (principal); I48.0 Paroxysmal atrial fibrillation

== ENCOUNTER → 2017-08-26 | Outpatient (CLI) | payer BC ==
[2017-08-26 12:14] LABS: BASO % 0.3 %; BASO ABS # 0.02 K/uL (0-0.2); COMPLETE YES; EOS % 4.3 %; IG% 0.3 %; LYMPH % 27.3 %; LYMPH ABS # 1.57 K/uL (1.2-3.4); MEAN CELL VOLUME 97.6 fL (80-100); MEAN CORPUSCULAR HEMOGLOBIN 32.1 pg (25-34); MEAN CORPUSCULAR HGB CONC 32.9 g/dl (32-36); MEAN PLATELET VOLUME 10.9 fL (7.4-10.4); MONO % 14.3 %; NEUT % 53.5 %; PLATELET COUNT 177 K/uL (130-400); WHITE BLOOD COUNT 5.75 K/uL (4.8-10.8)
[2017-08-26 12:21] LABS: ALT/SGPT 40 U/L (12-78); BLOOD UREA NITROGEN 28 mg/dl (7-18); BUN/CREATININE RATIO 28.5 (10-20); CALCIUM 9.1 mg/dl (8.5-10.1); CARBON DIOXIDE 30 mmol/L (21-32); CHLORIDE 106 mmol/L (98-107); CREATININE 0.99 mg/dl (0.60-1.40); GLUCOSE 113 mg/dl (70-99); POTASSIUM 3.9 mmol/L (3.5-5.1); SODIUM 141 mmol/L (136-145)
[2017-08-26 12:24] LABS: ALB/GLOB RATIO 0.8 (0.9-2); ALKALINE PHOSPHATASE 84 U/L (45-117); AST/SGOT 41 U/L (15-37)
[2017-08-26 12:28] LABS: ESTIMATED AVERAGE GLUCOSE 131 mg/dl; HA1C FLAG Normal (Normal)
[2017-08-26 12:44] LABS: RATIO 16.2 mcg/mg (0-30.0)
== END | disposition home or self-care (01) ==
LOC: C.LAB1850 10:32
PROVIDERS: ATTEND Internal Medicine
DX: E11.9 Type 2 diabetes mellitus without complications (principal); D64.9 Anemia, unspecified

== ENCOUNTER → 2018-04-19 | Day surgery (SDC) | payer BC ==
[2018-04-11 13:19] VITALS: Ht 171.5 cm; Wt 77.3 kg
[~2018-04-19] VITALS: Ht 171.5 cm; Wt 77.3 kg
[~2018-04-19] MED LIST changes: +CEFAZOLIN 2000MG IV PUSH 15 ML IV SCH; +GENTIAN VIOLET TOP SOLN DROP CHARGE ONE; +LIDOCAINE/EPINEPHRINE 1% 20 ML VIAL ONE; +POVIDONE-IODINE OP SOLN 30 ML BTL ONE
[2018-04-19 07:30] VITALS: BP 118/71; PULSE 60; TEMP 36.5; O2SAT 95
== END | disposition home or self-care (01) ==
LOC: X.SURG 07:13
PROVIDERS: ATTEND Plastic Surgery
DX: C44.91 Basal cell carcinoma of skin, unspecified (principal); Z53.9 Procedure and treatment not carried out, unspecified reason

== ENCOUNTER → 2018-04-26 | Day surgery (SDC) | payer BC ==
[2018-04-25 15:45] VITALS: Ht 170.2 cm; Wt 77.3 kg
[~2018-04-26] VITALS: Ht 170.2 cm; Wt 77.3 kg
[~2018-04-26] MED LIST changes: +ACETAMINOPHEN 325 MG TAB PO PRN; +ATROPINE SULFATE 0.1 MG/ML 5ML SYR IV PRN; +BACITRACIN OINT 15 GM TUBE ONE; +DEXAMETHASONE SOD INJ 4 MG/ML VIAL ONE; +EpHEDrine SULFATE INJ 50 MG/ML AMP IV PRN; +FENTANYL CITRATE INJ 50 MCG/1 ML 2 ML VIAL IV PRN; +FENTANYL CITRATE INJ 50 MCG/1 ML 2 ML VIAL ONE; +HYDROCODONE/ACETAMIN 5/325MG TAB PO PRN; +LACTATED RINGER'S 1000ML 1,000 ML IV SCH; +LIDOCAINE HCL 2% 2 ML VIAL (20MG/ML) ONE; +METOCLOPRAMIDE HCL INJ 5 MG/ML 2 ML VIAL IV PRN; +MIDAZOLAM HCL 1 MG/ML 2ML VIAL ONE; +ONDANSETRON INJ 2 MG/ML 2 ML VIAL IV PRN; +ONDANSETRON INJ 2 MG/ML 2 ML VIAL ONE; +PHENYLEPHRINE 100MCG/ML 5ML SYR IV PRN; +PROPOFOL IV EMULSION 10 MG/ML 20 ML VIAL ONE; +SODIUM CHLORIDE 0.9% 1000ML 1,000 ML IV SCH; +STERILE IRRIGATING SOLUTION (BSS) 15ML OPR ONE
--- NOTE | 2018-04-26 12:04 | History & Physical Bridge - SC ---
H&P Re-Evaluation Bridge Note: I have examined the patient, reviewed the History & Physical and in the interval since the performance of the History & Physical I have noted the following changes of clinical significance: No changes noted
--- NOTE | 2018-04-26 13:05 | [facility] Post Operative Brief Note ---
Immediate Operative Summary Operative Date Apr 26, 2018. 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 Antwon Govea Change Number Operator Surgeon(s) 0 Estimated Blood Loss 5 Findings Consistent with Post-Op Diagnosis Frozen showed BCC, margins negative Specimens A. Desmoplastic Trichilemmoma of Chin-Permanent B. 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
[2018-04-26 13:15] VITALS: TEMP 36.2
--- NOTE | 2018-04-26 13:26 | Discharge Instructions-[facility] ---
Discharge Instructions Date of Service Apr 26, 2018. Visit Reason for Visit: Basal Cell Of Skin, Facial Skin Lesion Discharge Discharge Diagnosis / Problem: basal cell carcinoma nose Discharge Goals Goal(s): Decrease discomfort, Improve function Medications Stopped Medications Name(s): last dose blood thinners Wednesday Activity Recommendations Activity Limitations: per Instructions/Follow-up section Anesthesia . Post Anesthesia Instructions: If you have had General Anesthesia or IV Sedation: * Do not drive today. * Resume driving when surgeon permits. * Do not make important decisions or sign legal documents today. * Call surgeon for: 1. Temperature elevations greater than 101 degrees F. 2. Uncontrollable pain. 3. Excessive bleeding. 4. Persistent nausea and vomiting. 5. Medication intolerance (nausea, vomiting or rash). * For nausea and vomiting use only clear liquids such as: tea, soda, bouillon until nausea subsides, then gradually increase diet as tolerated. * If you have any concerns or questions, call your surgeon's office. If physician is unavailable and it is an emergency, call 911 or go to the nearest emergency room. . Instructions / Follow-Up Instructions / Follow-Up ACTIVITY RECOMMENDATIONS: __Normal activities _x_No bending, lifting or straining __No driving __Driving allowed when you are off pain medications __Walking permitted __You should have help at home for ___ days DRESSINGS: __No dressings required _x_Keep dressings dry/in place until first office visit __Remove dressings ___ and leave dressings off _x_Apply ice __2_ days __Remove dressings and reapply garment __Apply antibiotic ointment (Bacitracin, Neosporin, etc) to wounds 3-4 times/ day for 10 days BATHING: x__Keep dressings dry _x_Sponge bathing permitted __Showering permitted __No swimming, hot tubs or soaking in a tub MEDICATIONS: Resume previous medications unless instructed otherwise by your surgeon. Resume bloodthinners tomorrow if no signs of active bleeding _x_Do not use aspirin, Motrin, Advil or Ibuprofen as these may promote bleeding. Please use Tylenol. _x_Prescription(s) provided in office. OTHER INSTRUCTIONS: __Record drain output 2-3 times per day SPECIAL CARE INSTRUCTIONS: * It is normal to have a mild fever after surgery. If your temperature is higher than 101.5 degrees F, please call the office at [phone]. * Constipation is a typical side effect of pain medication. An over-the- counter stool softener will help relieve this. * Leaking around surgical drains may occur and should not cause concern. Sometimes these drains become clogged. If this happens, remove the bulb and milk the clot out of the tube, then replace the bulb. * Drainage from wounds after liposuction is normal and should be expected. Garments will become soiled. You should protect furniture and bedding. This drainage should mostly subside within 2-3 days. Leave garments in place unless instructed to remove them. * If you have unusual drainage from a wound or are concerned you have an infection or have any questions or concerns, please call the office at [phone]. FOLLOW UP VISIT: If not already scheduled, please call the office, , when you return home after surgery to schedule an appointment to be seen in ___ days. Diet Recommendations Home Diet: resume previous diet Procedures Procedures Performed: Right Upper Bridge of Nose Basal Cell Skin Cancer Excision, Frozen Section, Desmoplastic Trichilmmoma Of Chin Excision, Primary Closure Pending Studies Studies pending at discharge: no Medical Emergencies . Who to Call and When: Medical Emergencies: If at any time you feel your situation is an emergency, please call 911 immediately. . Non-Emergent Contact Non-Emergency issues call your: Primary Care Provider . . "Provider Documentation" section prepared by Winnie Govea. . [place] Drug Monitoring Program Search Results: patient reviewed within database, no issues identified
[2018-04-26 13:45] VITALS: BP 150/69; PULSE 60; O2SAT 95
--- NOTE | 2018-04-26 13:52 | Anesthesia Progress Nt - [facility] ---
Anesthesia Post Op Note Date & Time Apr 26, 2018 at 13:52 Vital Signs Pain Intensity: 0 Vital Signs Past 12 Hours Date Time Temp Pulse Resp B/P (MAP) Pulse Ox O2 Delivery O2 Flow Rate FiO2 04/26/18 13:45 60 16 150/69 (96) 95 Room Air 04/26/18 13:15 36.2 60 12 153/75 (101) 95 Room Air 04/26/18 10:17 36.6 59 16 150/78 (102) 94 Room Air Notes Mental Status: alert / awake / arousable, participated in evaluation Pt Amnestic to Procedure: Yes Nausea / Vomiting: adequately controlled Pain: adequately controlled Airway Patency, RR, SpO2: stable & adequate BP & HR: stable & adequate Hydration State: stable & adequate Anesthetic Complications: no major complications apparent
--- NOTE | 2018-04-28 17:44 | OPERATIVE REPORT ---
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 PROCEDURE: Excision of basal cell carcinoma at right bridge of nose with frozen section and layered closure and excision of desmoplastic tricholemmoma with layered closure. SURGEON: Dr. Winnie Govea. TARGET DEVELOPER: None. ANESTHESIA: Local with sedation. COMPLICATIONS: None. INDICATION FOR THE PROCEDURE: Patient is an 87-year-old male who presented to our office with a lesion on his right nose which had been present for approximately 3 years and grew in size. He also had a small raised lesion on his chin that he nicked with shaving. He was evaluated by my physician assistant professor of nursing who performed a biopsy of both of these lesions. 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 Based on the large size of the lesion on the nose, I suggested excision in the operating room with frozen section. BRIEF DESCRIPTION OF THE PROCEDURE: The risks, benefits, and alternatives of the procedure were explained to the patient who agreed and signed consent. He was identified and marked in the preoperative holding area and he evaluated the sites as I marked them to confirm the location. He was brought to the operating room where he was positioned supine and placed under sedation without incident. Surgical site was prepped and draped sterilely. A time-out procedure was performed. 1% lidocaine with epinephrine was used to anesthetize each of the planned excisions. I began with the chin lesion. It was marked in an elliptical fashion including prior biopsy site measuring 4 mm as well as 2 mm on either side for maximal excision of 8 mm. It was marked in elliptical fashion. It was excised using a 15 blade scalpel. Hemostasis was achieved using electrocautery. The lesion was sent for permanent specimen. Wound was reapproximated using 4-0 Vicryl interrupted dermal sutures and a 5-0 Monocryl running subcuticular suture. Total wound closure length was 2 cm. Attention was then turned to excision of the lesion of the bridge of the nose. It was marked with a margin of about 2 mm of normal skin. Maximal excision diameter was 1.5 cm. After injection of local anesthesia, the lesion was excised using a 15 blade scalpel. A suture was placed in the 12 o'clock position and sent for frozen section. Due to significant skin laxity at the location, I felt primary closure would be achievable. Frozen section report showed a nodular basal cell carcinoma with examined margins free of neoplasm. The wound was prepared for closure. Small dog ears were excised. Wound was reapproximated using 4-0 Vicryl interrupted dermal sutures and 5-0 nylon interrupted skin sutures. Total wound closure length was 2.1 cm. The procedure was tolerated well. Dressings were applied. Patient was awakened and transferred to recovery in satisfactory condition. I attest to the content of the Intraoperative Record and any orders documented therein. Any exception s are noted below.
== END | disposition home or self-care (01) ==
LOC: X.SURG 09:22
PROVIDERS: ATTEND Plastic Surgery
DX: C44.311 Basal cell carcinoma of skin of nose (principal); D23.39 Other benign neoplasm of skin of other parts of face; I35.0 Nonrheumatic aortic (valve) stenosis; I25.10 Atherosclerotic heart disease of native coronary artery without angina pectoris; E11.9 Type 2 diabetes mellitus without complications; K44.9 Diaphragmatic hernia without obstruction or gangrene; E78.5 Hyperlipidemia, unspecified; I10 Essential (primary) hypertension; K21.9 Gastro-esophageal reflux disease without esophagitis; I48.0 Paroxysmal atrial fibrillation; I45.10 Unspecified right bundle-branch block; Z95.0 Presence of cardiac pacemaker; Z95.2 Presence of prosthetic heart valve; Z96.659 Presence of unspecified artificial knee joint; Z79.01 Long term (current) use of anticoagulants